=== PATIENT | female | born 1990 | race Caucasian/White ===

== ENCOUNTER 2017-05-12 18:59 | Emergency (ER) | payer SELFPAY ==
[2017-05-12 19:53] VITALS: BP 126/74
== END 2017-05-13 00:20 | disposition left against medical advice (07) ==
LOC: ED 18:59
DX: M79.642 Pain in left hand (principal); Z53.21 Procedure and treatment not carried out due to patient leaving prior to being seen by health care provider

== ENCOUNTER 2017-05-13 08:48 | Emergency (ER) | payer SELFPAY ==
[2017-05-13 08:53] VITALS: BP 116/72
--- NOTE | 2017-05-13 12:24 | Emergency Department Report ---
ED Laceration HPI - HPI Chief Complaint: Laceration/Recheck/Suture Stated Complaint: LEFT HAND LACERATION Time Seen by Provider: 05/13/17 12:03 Occurred When: Yesterday Location: Upper Extremity (patient has a 1/2 cm laceration in the webspace at the base of the left thumb) Severity: mild Laceration Symptoms: Yes Pain, No Foreign Body Sensation, No Numbness, No Weakness Other History: Patient states that she was opening a bottle of wine and her glass broke cutting her hand this occurred approximately 18 hours ago ED Review of Systems ROS: Stated complaint: LEFT HAND LACERATION Other details as noted in HPI Comment: All other systems reviewed and negative ED Past Medical Hx - Past Medical History Hx Asthma: Yes - Surgical History Past Surgical History?: No - Social History Smoking Status: Never Smoker Substance Use Type: Alcohol Laceration Physical Exam - Exam General: Vital signs noted. No distress. Alert and acting appropriately. Wound Length (cm): 2 Laceration Location: Upper Extremity (base of the left thumb) Laceration Exam: Yes Normal Distal CMS, No Foreign Body, No Exposed Tendon, Vessel, or Nerve, No Tendon Injury ED Course Vital Signs 05/13/17 08:50 Temperature 97.9 F Pulse Rate 85 Respiratory 18 Rate Blood Pressure 116/72 O2 Sat by Pulse 100 Oximetry ED Medical Decision Making - Medical Decision Making The patient's laceration is been open exposed to air to long to be closed with sutures the patient's wound was irrigated closed with Steri-Strips and dressed. The patient's tetanus is up-to-date Critical care attestation.: If time is entered above; I have spent that time in minutes in the direct care of this critically ill patient, excluding procedure time. ED Disposition Clinical Impression: Laceration Disposition: DC-01 TO HOME OR SELFCARE Is pt being admited?: No Does the pt Need Aspirin: No Condition: Stable Instructions: Laceration (ED) Referrals: PRIMARY CARE, [Primary Care Provider] - 3-5 Days
== END 2017-05-13 12:29 | disposition home or self-care (01) ==
LOC: ED 08:48
DX: S61.412A Laceration without foreign body of left hand, initial encounter (principal); J45.909 Unspecified asthma, uncomplicated; W25.XXXA Contact with sharp glass, initial encounter; Y93.89 Activity, other specified; Y92.89 Other specified places as the place of occurrence of the external cause; Y99.8 Other external cause status
CPT/HCPCS: 99282